=== PATIENT | female | born 1995 | race Caucasian/White ===

== ENCOUNTER 2017-03-25 09:47 | Emergency (ER) | payer OTHER ==
[2017-03-25 09:51] VITALS: BP 128/77
--- NOTE | 2017-03-25 12:56 | Emergency Department Report ---
Chief Complaint: Laceration/Recheck/Suture Stated Complaint: STITCH REMOVAL Time Seen by Provider: 03/25/17 12:47 - HPI History of Present Illness: 22-year-old female here for stitches that was placed here 03/15/2017. She states wound healing appropriately. She denies fevers/chills nausea vomiting or any other problems. - ROS Review of Systems: As noted in HPI - Exam Vital Signs: Vital Signs 03/25/17 09:48 Temperature 98.8 F Pulse Rate 74 Respiratory 18 Rate Blood Pressure 128/77 O2 Sat by Pulse 100 Oximetry Physical Exam: GENERAL: Alert and oriented x3, no apparent distress, Normal Gait, atraumatic. LUNGS: Symetrical with respiration, No wheezing, no rales or crackles, CTAB. HEART: S1, S2 present, regular rate and rhythm without murmur, no rubs, no gallops. SKIN: Warm and dry, 3 stitches clean over well healed laceration on the left posterior hand . No other lesions, No ulceration or induration present. MSE screening note: Focused history and physical exam performed. Due to findings the following was ordered: ED Medical Decision Making - Medical Decision Making 22-year-old female presents for stitches removal 3 stitches were removed from the exterior left hand above the pinky finger. She tolerated procedure well. Wound looks clean dried no erythema and no edema noticed no wound dehiscence. Vital Signs and normal patient is in no acute distress ED Disposition for MSE Clinical Impression: Encounter for removal of sutures Disposition: DC-01 TO HOME OR SELFCARE Is pt being admited?: No Does the pt Need Aspirin: No Condition: Stable Instructions: Acute Wound Care (ED) Prescriptions: Neomycn/Baci Zn/Pmyx Bs/Pramox [Triple Antibiotic Plus Ointmnt] 1 applic TP TID #1 tube Referrals: PRIMARY CARE, [Primary Care Provider] - 3-5 Days [facility] [Outside] - 3-5 Days [facility] [Outside] - 3-5 Days Forms: Accompanied Note, Work/School Release Form(ED) Time of Disposition: 12:51
== END 2017-03-25 13:06 | disposition home or self-care (01) ==
LOC: ED 09:47
DX: Z48.02 Encounter for removal of sutures (principal)
CPT/HCPCS: 99282